=== PATIENT | female | born 1985 | race Asian ===

== ENCOUNTER 2023-12-13 06:57 | Day surgery (SDC) | payer OTHER ==
[~2023-12-13] VITALS: Ht 157.5 cm; Wt 53.6 kg
[2023-12-13] MEDS ORDERED: BENZOCAINE 20% 50 MCG/SPRAY 57 GM TP ONE (06:58)
[2023-12-13] MEDS ORDERED: LIDOCAINE 4% 50 ML SOLUTION TP ONE (06:58)
[2023-12-13] MEDS ORDERED: LIDOCAINE 2% 11 ML JELLY TP ONE (06:58)
[2023-12-13] MEDS ORDERED: FentaNYL CITRATE PF 100 MCG/2 ML VIAL ONE (07:39)
[2023-12-13] MEDS ORDERED: MIDAZOLAM HCL 2 MG/2 ML VIAL ONE (07:39)
[2023-12-13] MEDS ORDERED: SODIUM CHLORIDE 0.9% 1,000 ML ONE (07:42)
[2023-12-13] MEDS: SODIUM CHLORIDE 0.9% 1,000 ML IV ONE (08:22)
[2023-12-13 09:50] VITALS: PULSE 77; RESP 20; O2SAT 100
[2023-12-13] MEDS ORDERED: MethylPREDNISolone SOD SUCC 125 MG/2 ML VIAL ONE (09:52)
[2023-12-13] MEDS ORDERED: FLUT12AE21 IH (10:11)
[2023-12-13] MEDS ORDERED: DOXY-354 PO (10:11)
[2023-12-13] MEDS ORDERED: PROM118S5 PO (10:11)
[2023-12-13] MEDS ORDERED: FAMO20 PO (10:11)
[2023-12-13] MEDS ORDERED: FLUT16SP NASAL (10:11)
[2023-12-13] MEDS ORDERED: ALBU18HF12 IH (10:11)
[2023-12-13] MEDS ORDERED: MONT-35 PO (10:11)
[2023-12-13] MEDS: MethylPREDNISolone SOD SUCC 125 MG/2 ML VIAL IVP ONE (10:42)
== END 2023-12-13 11:50 | disposition home or self-care (01) ==
LOC: SURGERY 06:57
PROVIDERS: ATTEND Internal Medicine Critical Care Medicine
DX: R05.3 Chronic cough (principal); R06.2 Wheezing; R04.2 Hemoptysis
CPT/HCPCS: 31623; 84703; 87206; 87101; 87220; 87070; 88108; 88305; 31624; 71045; 87015; J3010; J2250; J2930; Q9967; J7030; Z7610